=== PATIENT | female | born 1955 ===

== ENCOUNTER 2017-02-02 10:41 | Emergency (ER) | payer BC ==
[2017-02-02 10:59] VITALS: BP 123/61
--- NOTE | 2017-02-02 11:52 | UC ---
Lower Extremity/Ankle HPI - HPI Summary HPI Summary: pt presents with c/o left 5th toe swelling, redness and tenderness with ambulation X 6 weeks. Pt reports ~ 6 weeks ago, pt [place] foot [place] rock in the [place] in [place] while on vacation. Pt reports left 5th toe remains swollen , bruised and tender with sustained ambulation and standing. - History of Current Complaint Chief Complaint: UCLowerExtremity Stated Complaint: LEFT LITTLE TOE INJURY Time Seen by Provider: 02/02/17 11:46 Hx Obtained From: Patient Hx Last Menstrual Period: DONE ?: No Onset/Duration: Sudden Onset, Lasting Weeks - 6 weeks Severity Initially: Mild Severity Currently: Mild Aggravating Factor(s): Standing, Ambulation Alleviating Factor(s): Rest, Elevation, Ice Able to Bear Weight: Yes - Risk Factors Gout Risk Factors: Age Over 40 DVT Risk Factors: Recent Trauma - 6 weeks ago - Allergies/Home Medications Allergies/Adverse Reactions: Allergies Allergy/AdvReac Type Severity Reaction Status Date / Time No Known Allergies Allergy Verified 02/02/17 10:59 Home Medications: Home Medications Conjugated Estrogens-Medroxypr [Prempro] 1 tab PO DAILY 02/02/17 [History Confirmed 02/02/17] PMH/Surg Hx/FS Hx/Imm Hx Previously Healthy: Yes - Surgical History Surgical History: None - Family History Known Family History: Positive: Other - positive [facility] for contusion - Social History Lives: With Family Alcohol Use: Occasionally Substance Use Type: None Smoking Status (MU): Current Every Day Smoker Type: Cigarettes Amount Used/How Often: 1/2 PPD Length of Time of Smoking/Using Tobacco: 47 YRS Have You Smoked in the Last Year: Yes Review of Systems Constitutional: Negative Skin: Bruising - left 5th toe Eyes: Negative ENT: Negative Respiratory: Negative Cardiovascular: Negative Gastrointestinal: Negative Genitourinary: Negative Motor: Negative Neurovascular: Negative Musculoskeletal: Arthralgia - with prolonged standing, left 5th toe Neurological: Negative Psychological: Negative All Other Systems Reviewed And Are Negative: Yes Physical Exam Triage Information Reviewed: Yes Appearance: Well-Appearing Vital Signs: Initial Vital Signs Temp 98.9 F 02/02/17 10:52 Pulse 72 02/02/17 10:52 Resp 16 02/02/17 10:52 BP 123/61 02/02/17 10:52 Pulse Ox 99 02/02/17 10:52 Eye Exam: Normal ENT Exam: Normal Respiratory: Positive: No respiratory distress Musculoskeletal Exam: Normal Musculoskeletal: Positive: Other: - miold swelling to left 5th toe, non tendernes with passive and activie ROM Neurological Exam: Normal Psychological Exam: Normal Skin Exam: Other - bruising left 5th toe Lower Extremity Course/Dx - Course Course Of Treatment: I discussed with the pt that her injury was 6 weeks ago and that an xray may not provide accurate information regarding the acute injury that occured 6 weeks ago. The pt agree to this plan of care. Pt verbalized understanding. - Differential Dx/Diagnosis Differential Diagnosis/HQI/PQRI: Contusion, Fracture (Closed), Sprain, Strain Provider Diagnoses: left 5th toe contusion Discharge - Discharge Plan Condition: Stable Disposition: HOME Patient Education Materials: Foot Contusion (ED) Referrals: Machelle Alford MD [Primary Care Provider] - Kristopher Andres MD [Medical Doctor] - Additional Instructions: please follow up with your PCP and/or with the Orthopedic provider listed as needed.
== END 2017-02-02 12:08 | disposition home or self-care (01) ==
LOC: UCCORT 10:41
DX: S90.122A Contusion of left lesser toe(s) without damage to nail, initial encounter (principal); W22.8XXA Striking against or struck by other objects, initial encounter; Y93.89 Activity, other specified; Y92.89 Other specified places as the place of occurrence of the external cause; F17.210 Nicotine dependence, cigarettes, uncomplicated
CPT/HCPCS: 99212; G0463